=== PATIENT | female | born 2000 | race Caucasian/White ===

== ENCOUNTER → 2020-07-15 11:00 | Outpatient (BNVA) | payer OTHER, SELFPAY | PROVIDERS: Family Provider Family Medicine; PCP Family Medicine; Visit Provider Nurse Practitioner Family | DX: Z20.828 Contact with and (suspected) exposure to other viral communicable diseases (principal); J06.9 Acute upper respiratory infection, unspecified | CPT/HCPCS: 87635 ==

== ENCOUNTER → 2021-10-14 15:39 | Outpatient (BNVA) | payer BC, SELFPAY | PROVIDERS: Family Provider Family Medicine; PCP Family Medicine; Visit Provider Nurse Practitioner Family | DX: N93.9 Abnormal uterine and vaginal bleeding, unspecified (principal) | CPT/HCPCS: 85025 ==

== ENCOUNTER → 2021-10-17 11:02 | Outpatient (BNVA) | payer BC, SELFPAY | PROVIDERS: Family Provider Family Medicine; PCP Family Medicine; Visit Provider Nurse Practitioner Family | DX: N93.9 Abnormal uterine and vaginal bleeding, unspecified (principal); D64.9 Anemia, unspecified; E28.2 Polycystic ovarian syndrome | CPT/HCPCS: 80053; 80061; 82607; 82728; 82746; 83036; 83550; 84146; 84403; 84439; 84443; 85025 ==

== ENCOUNTER → 2021-11-03 08:54 | Outpatient (BNVA) | payer BC, MEDICAID, SELFPAY | PROVIDERS: Family Provider Family Medicine; PCP Family Medicine; Visit Provider Obstetrics & Gynecology | DX: Z12.4 Encounter for screening for malignant neoplasm of cervix (principal); N93.9 Abnormal uterine and vaginal bleeding, unspecified | CPT/HCPCS: 83036; 83525; 84443; 88175 ==

== ENCOUNTER → 2021-12-09 15:23 | Outpatient (BNVA) | payer BC, MEDICAID, SELFPAY | PROVIDERS: Family Provider Family Medicine; PCP Family Medicine; Visit Provider Obstetrics & Gynecology | DX: N93.9 Abnormal uterine and vaginal bleeding, unspecified (principal); N88.8 Other specified noninflammatory disorders of cervix uteri | CPT/HCPCS: 76830 ==

== ENCOUNTER 2021-12-29 07:17 | Outpatient (CLI) | payer BC, MEDICAID, SELFPAY ==
--- NOTE | 2021-12-29 08:00 | FL_ITS ---
WS: [id number] Hysterosalpingogram, 12/29/2021 Clinical Data: E28.2 - Polycystic ovarian syndrome Comparison: None. Fluoroscopy time: 0min [id number] # of spot films: 5 Findings: Dr. Gamble injected the contrast material to fill the uterine cavity. 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 There were air bubbles in the uterus but no definite intraluminal filling defects. Both fallopian tubes filled and were not dilated or obstructed. There was bilateral pelvic spill. The pat ient has had reduction of an old pelvic fracture with multiple orthopedic screws. FL/FL hysterosalpingography [id number] Impression: Normal hysterosalpingogram.
[2021-12-29] MEDS: iohexol 240 mg/mL 50 mL Btl INTRA-ARTI (08:30)
--- NOTE | 2021-12-30 07:35 | PM.OP ---
Operative Report Date of procedure: December 30, 2021 Pre-op diagnosis: female infertility Post-op diagnosis: same Post-op findings: normal uterine contour, normal bilateral spill from tubes Procedure done: hysterosalpingogram Surgeon: Cindi Gamble Complications: none Procedure: The patient was placed in the dorsal lithotomy position. The speculum was placed into the vagina and the cervix visualized. It was cleansed with betadine. A single tooth tenaculum was placed onto the anterior lip of the cervix. The uterus was sounded to 8 cm. The canula was placed into the cervix. 20 ml of contrast was injected into the uterus. Fluoroscopy was used to take images. All of the instruments were removed. A final picture was taken. The patient tolerated the procedure well. Counts were correct. She was dismissed home in stable condition.
== END 2021-12-29 07:18 | disposition home or self-care (01) ==
LOC: RAD 07:18
PROVIDERS: Family Provider Family Medicine; PCP Family Medicine; Visit Provider Obstetrics & Gynecology
DX: E28.2 Polycystic ovarian syndrome (principal)
CPT/HCPCS: 74740

== ENCOUNTER → 2022-03-02 12:14 | Outpatient (BNVA) | payer BC, MEDICAID, SELFPAY | PROVIDERS: PCP Family Medicine; Visit Provider Obstetrics & Gynecology | DX: E16.1 Other hypoglycemia (principal) | CPT/HCPCS: 83525 ==

== ENCOUNTER 2022-06-08 14:19 | Outpatient (CLI) | payer BC, MEDICAID, SELFPAY | END 2022-06-08 14:20 | disposition home or self-care (01) | LOC: LAB 14:21 | PROVIDERS: PCP Family Medicine; Visit Provider Obstetrics & Gynecology | DX: E16.2 Hypoglycemia, unspecified (principal) | CPT/HCPCS: 36415; 83525 ==

== ENCOUNTER 2022-07-13 08:20 | Outpatient (CLI) | payer BC, MEDICAID, SELFPAY | END 2022-07-13 08:21 | disposition home or self-care (01) | LOC: LAB 08:23 | PROVIDERS: PCP Family Medicine; Visit Provider Obstetrics & Gynecology | DX: E16.1 Other hypoglycemia (principal) | CPT/HCPCS: 36415; 83525 ==

== ENCOUNTER 2022-12-13 06:00 | Outpatient (RCR) | payer BC, MEDICAID, SELFPAY | END 2023-01-10 23:59 | disposition home or self-care (01) | LOC: TPT 06:00 | PROVIDERS: Visit Provider Orthopaedic Surgery | DX: Z47.89 Encounter for other orthopedic aftercare (principal) | CPT/HCPCS: 97110; 97162 ==

== ENCOUNTER → 2023-01-15 08:15 | Outpatient (BNVA) | payer BC, MEDICAID, SELFPAY | PROVIDERS: Visit Provider Obstetrics & Gynecology | DX: E28.2 Polycystic ovarian syndrome (principal) | CPT/HCPCS: 83525 ==

== ENCOUNTER 2023-01-17 10:41 | Outpatient (RCR) | payer BC, MEDICAID, SELFPAY | END 2023-01-23 23:59 | disposition home or self-care (01) | LOC: TPT 10:41 | PROVIDERS: Visit Provider Orthopaedic Surgery | DX: Z47.89 Encounter for other orthopedic aftercare (principal) | CPT/HCPCS: 97110 ==

== ENCOUNTER → 2023-06-07 17:16 | Outpatient (BNVA) | payer BC, MEDICAID, SELFPAY | PROVIDERS: PCP Family Medicine; Visit Provider Family Medicine | DX: J02.9 Acute pharyngitis, unspecified (principal); H66.93 Otitis media, unspecified, bilateral | CPT/HCPCS: 87071; 87880 ==

== ENCOUNTER → 2023-06-15 10:33 | Outpatient (BNVA) | payer BC, MEDICAID, SELFPAY | PROVIDERS: PCP Family Medicine; Visit Provider Nurse Practitioner Family | DX: H66.93 Otitis media, unspecified, bilateral (principal); J06.9 Acute upper respiratory infection, unspecified | CPT/HCPCS: 87400; 87426 ==

== ENCOUNTER 2024-02-23 20:36 | Emergency (ER) | payer BC, MEDICAID, SELFPAY ==
[2024-02-23 20:44] VITALS: BP 139/84; PULSE 76; RESP 16; TEMP 37.2; O2SAT 100; BMI 33.9
[2024-02-24] VITALS (11 sets, daily range): BP systolic 98–159; BP diastolic 53–99; PULSE 78–90; RESP 15–16; O2SAT 94–100
--- NOTE | 2024-02-24 01:45 | CTR_ITS ---
PROCEDURE INFORMATION: Exam: CT Head Without Contrast Exam date and time: 02/24/2024 2:16 AM Age: 24 years old Clinical indication: Pain; Headache; Patient HX: PATIÑO with fever; Additional info: Headache, fever TECHNIQUE: Imaging protocol: Computed tomography of the head without contrast. Radiation optimization: All CT scans at this facility use at least one of these dose optimization techniques: automated exposure control; mA and/or kV adjustment per patient size (includes targeted exams where dose is matched to clinical indication); or iterative reconstruction. COMPARISON: No relevant prior studies available. RADIATION DOSE METRICS: Total DLP (mGy-cm): 1070.08 FINDINGS: Brain: Normal. No hemorrhage. Unremarkable white matter. No mass effect. Cerebral ventricles: No ventriculomegaly. Paranasal sinuses: Visualized sinuses are unremarkable. No fluid levels. Mastoid air cells: Visualized mastoid air cells are well aerated. Bones: Unremarkable. No acute fracture. Soft tissues: Unremarkable. CT/CT head wo con* [id number] IMPRESSION: No acute intracranial abnormality.
[2024-02-24] MEDS: metoclopramide 5 mg/mL SDV 2 mL 10 MG IVP (03:37)
[2024-02-24] MEDS: ketorolac 30 mg/mL INJ IVP (03:37)
[2024-02-24] MEDS: sodium chloride 0.9% 1,000 ML 999 ML IV ×2 (03:37→05:33)
[2024-02-24] MEDS: morphine 4 mg/mL SDV 1 mL IVP ×2 (03:37→05:29)
[2024-02-24 03:42] LABS: Basophils % 0.4 %; Eosinophils # 0.1 10^3/uL (0.0-0.8); Eosinophils % 1.9 %; Hematocrit 41.2 % (36-47); Lymphocytes # 2.2 10^3/uL (0.8-4.8); Lymphocytes % 31.3 %; Mean Corpuscular HGB Conc 31.1 g/dL (30-55); Mean Corpuscular Hemoglobin 25.1 pg (27-33); Mean Corpuscular Volume 80.8 fl (85-98); Mean Platelet Volume 11.2 fL (7.4-10.4); Monocytes # 0.4 10^3/uL (0.2-0.9); Monocytes % 5.3 %; Neutrophils # 4.21 10^3/uL (1.8-7.7); Neutrophils % 60.8 %; Nucleated Red Blood Cells % 0 %; Platelet Count 287 10^3/cmm (157-399); Red Cell Distribution Width 14.1 % (12.1-15.1); White Blood Count 6.93 10^3/uL (3.29-11.43)
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
[2024-02-24 03:58] LABS: Alanine Aminotransferase 53 U/L (0-33); Albumin Level 4.4 g/dL (3.5-5.2); Alkaline Phosphatase 46 U/L (35-105); Anion Gap 18.8 (5-19); Aspartate Amino Transferase 29 U/L (0-32); Blood Urea Nitrogen 12 mg/dL (6-20); C Reactive Protein 4.8 mg/L (0.0-4.9); Carbon Dioxide 23 mmol/L (22-29); Chloride 100 mmol/L (98-107); Creatine Phosphokinase 62 U/L (26-192); Creatinine Clr Calc Pharmacy 133.4157; Globulin 3.2 g/dL (1.3-4.6); Glomerular Filtration Rate 75.7 mL/min (90-130); Glucose 123 mg/dL (65-115); Osmolality Calculated 287 mOsm/kg (285-295); Potassium 3.8 mmol/L (3.5-5.1); Sodium 138 mmol/L (136-145); Total Bilirubin 0.2 mg/dL (0.15-1.2); Total Protein 7.6 g/dL (6.6-8.7)
[2024-02-24 03:59] LABS: Lactic Sepsis W/Reflex 0.8 mmol/L (0.5-2.2)
[2024-02-24 04:02] LABS: HCG, Serum Qual Negative (Negative)
[2024-02-24 04:45] LABS: Add Urine Culture? Yes; Add Urine Microscopic? YES; Bacteria Urine 3+ /hpf; Bilirubin Urine Neg (Negative); Blood Urine Neg (Negative); Glucose Urine UA Norm (Normal); Ketones Urine 1+ (Negative); Leukocyte Esterase Urine 1+ (Negative); Mucus Urine TRACE /hpf; Nitrate Urine Negative (Negative); Protein Urine Neg (Negative); RBC Urine 0-4 /hpf (0-2); Specific Gravity, Urine 1.015 (1.005-1.030); Urine Appearance Cloudy (CLEAR); Urine Color Yellow (Yellow); Urobilinogen Urine Neg (Negative); WBC Urine 15-25 /hpf (0-5); pH Urine 6.5 (5-7)
[2024-02-24 05:29] LABS: Adenovirus Not Detected (NOT DETECT); Chlamydia Pneumoniae Not Detected (NOT DETECT); Coronavirus 229E,HKU1,NL63,OC4 Not Detected (NOT DETECT); Human Metapneumovirus Not Detected (NOT DETECT); Human Rhinovirus/Enterovirus Not Detected (NOT DETECT); Influenza A Not Detected (NOT DETECT); Influenza A H1 Not Detected (NOT DETECT); Influenza A H1-2009 Not Detected (NOT DETECT); Influenza A H3 Not Detected (NOT DETECT); Influenza B Not Detected (NOT DETECT); Mycoplasma Pneumoniae Not Detected (NOT DETECT); Parainfluenza Virus Type 1 Not Detected (NOT DETECT); Parainfluenza Virus Type 2 Not Detected (NOT DETECT); Parainfluenza Virus Type 3 Not Detected (NOT DETECT); Parainfluenza Virus Type 4 Not Detected (NOT DETECT); Respiratory Syncytial Virus A Not Detected (NOT DETECT); Respiratory Syncytial Virus B Not Detected (NOT DETECT); SARS-COV-2 Not Detected (NOT DETECT)
[2024-02-24] MEDS: cefTRIAXone 1,000 mg SDV 1000 MG IVP (05:29)
== END 2024-02-24 05:59 | disposition home or self-care (01) ==
PROVIDERS: Emergency Provider Emergency Medicine; PCP Family Medicine
DX: N39.0 Urinary tract infection, site not specified (principal); R51.9 Headache, unspecified; Z79.899 Other long term (current) drug therapy
CPT/HCPCS: 70450; 80053; 81001; 82550; 83605; 84703; 85025; 86140; 87086; 87486; 87581; 87633; 96361; 96374; 96375; 96376; 99285; J0696; J1885; J2270; J2765; J7030

== ENCOUNTER → 2024-06-04 14:30 | Outpatient (BNVA) | payer BC, MEDICAID, SELFPAY | PROVIDERS: PCP Family Medicine; Visit Provider Obstetrics & Gynecology | DX: Z31.69 Encounter for other general counseling and advice on procreation (principal); N93.9 Abnormal uterine and vaginal bleeding, unspecified; D64.9 Anemia, unspecified; N91.2 Amenorrhea, unspecified | CPT/HCPCS: 80053; 81025; 83001; 84443; 85025 ==

== ENCOUNTER 2025-05-12 10:08 | Outpatient (CLI) | payer SELFPAY ==
[2025-05-12 12:24] LABS: HIV 1 & 2 Antigen Non-Reactive (Non-Reactiv)
[2025-05-12 12:39] LABS: Hepatitis B Surface Antigen Non-Reactive (Nonreactive)
== END 2025-05-12 10:09 | disposition home or self-care (01) ==
PROVIDERS: PCP Family Medicine; Visit Provider Specialist
DX: Z11.3 Encounter for screening for infections with a predominantly sexual mode of transmission (principal)
CPT/HCPCS: 86762; 86803; 86850; 86900; 87340; 87806

== ENCOUNTER 2025-07-14 16:34 | Outpatient (CLI) | payer SELFPAY ==
[2025-07-14 18:17] LABS: Follicle Stimulating Hormone 5.7 mIU/mL
== END 2025-07-14 16:35 | disposition home or self-care (01) ==
PROVIDERS: PCP Family Medicine; Visit Provider Specialist
DX: E28.9 Ovarian dysfunction, unspecified (principal)
CPT/HCPCS: 36415; 82670; 83001; 83002; 84144; 84702